=== PATIENT | male | born 1995 | race Hispanic/Latino ===

== ENCOUNTER 2019-07-16 02:14 | Emergency (ER) | payer OTHER ==
[2019-07-16 02:44] LABS: #Lymphocytes 0.7 thou/uL (1.20-3.40); #Monocytes 0.9 thou/uL (0.11-0.59); #Neutrophils 14.4 thou/uL (1.40-6.50); %Basophils 0.2 % (0.0-1.0); %Lymphocytes 4.1 % (21.0-51.0); %Monocytes 5.8 % (0.0-10.0); Hemoglobin 15.7 g/dL (14.0-18.0); Mean Corpuscular HGB CONC 35.2 g/dL (32.0-36.0); Mean Corpuscular Hemoglobin 32.6 pg (27.0-31.0); Mean Corpuscular Volume 92.7 fL (78.0-98.0); Mean Platelet Volume 8.1 fL (7.4-10.4); Platelet Count 219 thou/uL (130-400); RBC Distribution Width 11.3 % (11.5-14.5); Red Blood Cell (RBC) Count 4.82 mill/uL (4.70-6.10)
[2019-07-16 03:22] LABS: ALT (SGPT) 9 U/L (8-55); AST (SGOT) 14 U/L (5-34); Albumin 4.8 g/dL (3.5-5.0); Alkaline Phosphatase 80 U/L (40-150); Anion Gap 15 mmol/L (10-20); BUN (Urea Nitrogen) 6 mg/dL (8.9-20.6); Bilirubin, Total 1.7 mg/dL (0.2-1.2); Calc. Creatinine Clearance 0 mL/min (70-130); Calcium 10.3 mg/dL (7.8-10.44); Carbon Dioxide 22 mmol/L (22-29); Chloride 104 mmol/L (98-107); Estimated GFR-MDRD 86; Globulin 3.1 g/dL (2.4-3.5); Glucose 136 mg/dL (70-105); Lipase 5 U/L (8-78); Potassium 3.4 mmol/L (3.5-5.1); Protein, Total 7.9 g/dL (6.0-8.3); Sodium 138 mmol/L (136-145)
--- NOTE | 2019-07-16 08:17 | RAD ---
EXAM: Chest 2 views: HISTORY: Fever and body aches COMPARISON: None. FINDINGS: There is a normal-sized cardiomediastinal silhouette. There is no evidence of consolidation, mass, or pleural effusion. The bones are unremarkable. IMPRESSION: No evidence of acute cardiopulmonary disease
== END 2019-07-16 05:07 | disposition home or self-care (01) ==
LOC: ERS 02:14
DX: B34.9 Viral infection, unspecified (principal); F31.9 Bipolar disorder, unspecified
CPT/HCPCS: 36415; 71046; 80053; 83690; 85025; 87081; 87430; 87804

== ENCOUNTER 2019-07-16 13:30 | Emergency (ER) | payer OTHER ==
[2019-07-16 14:02] LABS: Hemoglobin 15.4 g/dL (14.0-18.0); Mean Corpuscular HGB CONC 35.9 g/dL (32.0-36.0); Mean Corpuscular Hemoglobin 33.1 pg (27.0-31.0); Mean Corpuscular Volume 92.3 fL (78.0-98.0); Mean Platelet Volume 8.4 fL (7.4-10.4); Platelet Count 204 thou/uL (130-400); RBC Distribution Width 11.2 % (11.5-14.5); Red Blood Cell (RBC) Count 4.66 mill/uL (4.70-6.10); White Blood Cell (WBC) Count 17.1 thou/uL (4.8-10.8)
[2019-07-16] MEDS ORDERED: Acetaminophen 325 MG TAB ONE (14:19)
[2019-07-16] MEDS ORDERED: Ibuprofen 200 MG TAB ONE (14:19)
[2019-07-16 14:23] LABS: ALT (SGPT) 8 U/L (8-55); AST (SGOT) 13 U/L (5-34); Albumin 4.6 g/dL (3.5-5.0); Alkaline Phosphatase 78 U/L (40-150); Anion Gap 14 mmol/L (10-20); BUN (Urea Nitrogen) 7 mg/dL (8.9-20.6); Bilirubin, Total 1.5 mg/dL (0.2-1.2); Calc. Creatinine Clearance 0 mL/min (70-130); Calcium 9.9 mg/dL (7.8-10.44); Carbon Dioxide 22 mmol/L (22-29); Chloride 103 mmol/L (98-107); Estimated GFR-MDRD 90; Globulin 3.2 g/dL (2.4-3.5); Glucose 135 mg/dL (70-105); Potassium 3.6 mmol/L (3.5-5.1); Protein, Total 7.8 g/dL (6.0-8.3); Sodium 135 mmol/L (136-145)
[2019-07-16 14:32] LABS: Band 16 % (5-11); Lymphocytes 6 % (21-51); MDiff Complete? YES; Monocytes 9 % (0-10); Neutrophil 66 % (42-75); Ovalocytes SLIGHT = 2-5 cells (100X) (0-1/hpf); Platelet Morphology Comment Appears Adequate; Polychromasia SLIGHT = 2-3 cells (100X) (0-2/hpf); Reactive Lymphocytes 3 % (0-10)
[2019-07-16] MEDS ORDERED: Dexamethasone 10 MG/ML VIAL ONE (15:23)
== END 2019-07-16 15:20 | disposition home or self-care (01) ==
LOC: ERS 13:30
DX: J02.9 Acute pharyngitis, unspecified (principal); F31.9 Bipolar disorder, unspecified
CPT/HCPCS: 36415; 96372; 99284; J1100

== ENCOUNTER 2021-04-30 20:30 | Emergency (ER) | payer OTHER | END 2021-04-30 21:59 | disposition left against medical advice (07) | LOC: ERS 20:30 | DX: Z53.21 Procedure and treatment not carried out due to patient leaving prior to being seen by health care provider (principal) ==

== ENCOUNTER 2023-03-07 06:03 | Emergency (ER) | payer OTHER | END 2023-03-07 06:30 | disposition home or self-care (01) | LOC: ERS 06:03 | DX: K64.4 Residual hemorrhoidal skin tags (principal) | CPT/HCPCS: 99283 ==

== ENCOUNTER 2023-05-18 19:43 | Emergency (ER) | payer OTHER, SELFPAY ==
[2023-05-18] MEDS ORDERED: Ketorolac Tromethamine 30 MG/ML VIAL ONE (20:26)
== END 2023-05-18 20:57 | disposition home or self-care (01) ==
LOC: ERS 19:43
DX: R51.9 Headache, unspecified (principal); F17.290 Nicotine dependence, other tobacco product, uncomplicated
CPT/HCPCS: 70450; 96372; J1885

== ENCOUNTER 2024-10-05 10:49 | Emergency (ER) | payer SELFPAY ==
[2024-10-05] MEDS ORDERED: Boostrix 0.5 ML (Tdap) VIAL (>/=7 yrs of age) ONE (11:13)
[2024-10-05] MEDS ORDERED: Bacitracin 1 PK ONE (11:42)
== END 2024-10-05 12:04 | disposition home or self-care (01) ==
LOC: ERS 10:49
DX: S81.812A Laceration without foreign body, left lower leg, initial encounter (principal); F17.290 Nicotine dependence, other tobacco product, uncomplicated; W25.XXXA Contact with sharp glass, initial encounter
CPT/HCPCS: 12002; 90471; 90715

== ENCOUNTER 2024-10-14 10:25 | Emergency (ER) | payer SELFPAY | END 2024-10-14 11:13 | disposition home or self-care (01) | LOC: ERS 10:25 | DX: S91.012D Laceration without foreign body, left ankle, subsequent encounter (principal) ==

== ENCOUNTER 2025-06-20 18:28 | Emergency (ER) | payer BC, SELFPAY ==
[2025-06-20] MEDS ORDERED: Ketorolac Tromethamine 30 MG (1 mL) VIAL ONE (19:35)
== END 2025-06-20 20:58 | disposition home or self-care (01) ==
LOC: ERS 18:28
DX: J40 Bronchitis, not specified as acute or chronic (principal); F17.290 Nicotine dependence, other tobacco product, uncomplicated
CPT/HCPCS: 71045; 87081; 87428; 87430; 96372; J1100; J1885